=== PATIENT | female | born 1960 | race Caucasian/White ===

== ENCOUNTER → 2018-03-24 | Outpatient (CLI) | payer OTHER ==
[2015-05-21 16:14] VITALS: BMI 30.9
[~2018-03-24] MED LIST: ACE3 PO; ACET500T68 PO; AMI10 PO; ASC500 PO; ASCO-188 PO; CALC-734 PO; CALC-852 PO; CALC600T72 PO; CEF300 PO; CEFU250T11 PO; CEFU500T50 PO; CELE-1 PO; CEPH500T7 PO; CETI-169 PO; CHOL200022 PO; CIP500 PO; CLIN-1 PO; CLON1 PO; CLON1PAT19 TD; CLON1PAT20 TD; CYCL10TA29 PO; DAR100 PO; DEXL30CA5 PO; DEXL60CA6 PO; DIPH-740 PO; DIVA250T83 PO; DIVA500T97 PO; DOXY-179 PO; DOXY-181 PO; ENOX30DI4 SQ; ENOX40DI8 SQ; ENOX40DI9 SQ; EPIN0.3P15 IM; ERG400 PO; ERGO500037 PO; FERR-103 PO; FERR324T16 PO; FLU20 PO; FLUO20SO PO; FLUO20TA2 PO; FLUO40CA67 PO; FLUO40CA76 PO; FLUT16SP19 NS; FURO-47 PO; GAB300 PO; GABA-1 PO; GABA-549 PO; GENT5DRO31 OP; HYDR-4225 PO; HYDR12.561 PO; HYDR25CA83 PO; HYDR2TAB4 PO; HYDR2TAB74 PO; HYDR453.8 TP; HYOS0.1225 PO; IBU800 PO; KET10 PO; LAC10L PO; LAMO25TA4 PO; LISI-362 PO; LOR5/325 PO; LORA-802 PO; LORA10TA2 PO; MAXALT; METH4TAB66 PO; MISO200T62 PO; MONT10TA PO; MULT-1335 PO; MULT1TAB54 PO; NORE5TAB8 PO; OND4 PO; ONDA4TAB PO; ONDA4TAB9 PO; OXYC20TA86 PO; PAN40 PO; PANT40TA65 PO; PER PO; POTA-23 PO; PRE20 PO; PRED-1 PO; PRED20TA6 PO; PRO25 PO; RABE20TA33 PO; RANI-366 PO; RIZA10TA PO; SENN8.6T34 PO; SUCR1TAB51 PO; SULF-198 PO; TRA50 PO; TRAM-420 PO; TRI05T TP; TRIA10.8; WARF-1 PO; WARF2.5T11 PO; XANAX PO; ZOMIG; [UNRECOGNIZED DRUG - OTHER]
--- NOTE | 2018-03-30 09:39 | RADIOLOGY IMAGING REPORT ---
FACILITY: [facility] PATIENT NAME: DIMAS ADKINS : [id number] MR: [id number] V: [id number] EXAM DATE: [id number] ORDERING PHYSICIAN: JOSIAH DIAZ TECHNOLOGIST: Angela Arizmendi PROCEDURE:BILATERAL SCREENING MAMMOGRAPHY WITH TOMOGRAPHY & COMPUTER ASSISTED DIAGNOSIS COMPARISON:Prior mammograms 03/23/17, 01/20/16, 09/16/14, 02/20/14. INDICATIONS:SCREENING FINDINGS: Small amount of fibroglandular tissue is again seen throughout the breasts. Calcified oil cysts are again noted bilaterally. The parenchymal pattern has remained stable allowing for difference in mammographic technique & patient positioning. There is no evidence of malignant appearing mass, malignant appearing calcifications or other secondary sign of malignancy in either breast. DIAGNOSTIC CATEGORY 2--BENIGN FINDING. RECOMMENDATIONS: ROUTINE MAMMOGRAM AND CLINICAL EVALUATION. IMPRESSION: BIRADS 2: Benign finding No significant abnormality is seen. Dictated by: Erin Tompkins M.D. on 03/24/2018 at 12:50 Transcribed by: FELECIA on 03/24/2018 at 16:07 Approved by: Brayan Dennis M.D. on 03/30/2018 at 9:38 [facility]
== END ==
LOC: MAMO 03:07
PROVIDERS: ATTEND Internal Medicine
DX: Z12.31 Encounter for screening mammogram for malignant neoplasm of breast (principal)
CPT/HCPCS: 77063; 77067

== ENCOUNTER 2018-06-13 11:13 | Inpatient (IN) | payer OTHER ==
[2015-05-21 16:14] VITALS: Ht 162.6 cm; Wt 69.4 kg
[~2018-06-13] VITALS: Ht 162.6 cm; Wt 69.4 kg
[2018-06-13] VITALS (33 sets, daily range): BP systolic 126–162; BP diastolic 80–98
[~2018-06-13 11:13] MED LIST changes: +CEPH250C37 PO
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
[2018-06-13] MEDS ORDERED: NS(*) 0.9% 1000 ML BAG 1,000 ML IV ONE (11:54)
[2018-06-13] MEDS ORDERED: ONDANSETRON 4 MG/2 ML VIAL IVP ONE (11:55)
[2018-06-13] MEDS ORDERED: fentaNYL CITR 100 MCG/2 ML AMP IVP ONE ×3 (11:55→14:15)
--- NOTE | 2018-06-13 12:32 | RADIOLOGY IMAGING REPORT ---
FACILITY: [facility] [place] PATIENT NAME: Geeta Salinas : 1960 MR: [id number] V: [id number] EXAM DATE: ORDERING PHYSICIAN: NISHA NICHOLSON TECHNOLOGIST: Location: [facility] Patient: Geeta Salinas : 1960 Visit/Account:[id number] Date of Sevice: 06/13/2018 HIP RIGHT Indication: Right hip pain. Recent subluxation. Comparison: None available Findings: Frontal view of the pelvis and a frog-leg lateral view of the right hip are obtained. A right total h ip arthroplasties in place. Components project in appropriate alignment. No periprosthetic fracture o r lucency is seen. Left hip joint space is maintained. Pubic symphysis and sacroiliac joints are appr opriately aligned. Extensive changes of prior lumbosacral fusion are seen but is incompletely evaluat ed. IMPRESSION: 1. Right total hip arthroplasty in near-anatomic alignment. Report Dictated By: Zachariah Heller at 06/13/2018 12:27 PM Report E-Signed By: Zachariah Heller at 06/13/2018 12:28 PM WSN:[id number]
[2018-06-13 12:35] LABS: PLATELET COUNT, AUTOMATED 355 K/uL (150-450)
--- NOTE | 2018-06-13 14:16 | RADIOLOGY IMAGING REPORT ---
FACILITY: [facility] PATIENT NAME: Geeta Salinas : 1960 MR: [id number] V: [id number] EXAM DATE: ORDERING PHYSICIAN: NISHA NICHOLSON TECHNOLOGIST: Location: [facility] [place] Patient: Geeta Salinas : 1960 Visit/Account:[id number] Date of Sevice: 06/13/2018 ABDOMEN/PELVIS WITH CONTRAST HISTORY: ? hernia, r sided pain TECHNIQUE: Following administration of IV contrast contiguous axial images acquired through the abdom en/pelvis. Coronal and sagittal reformatting also performed. Dose Lowering Technique One of the following dose optimization techniques was utilized in the performance of this exam: Autom ated exposure control; adjustment of the mA and/or kV according to the patient's size; or use of an i terative reconstruction technique. Specific details can be referenced in the facility's radiology C T exam operational policy. CONTRAST: 75 mL Isovue-370 COMPARISON: None. FINDINGS: Visualized lung bases: Negative. Hepatobiliary: There are postsurgical changes from a cholecystectomy. There is a 9.2 x 7.2 x 13.3 cm lobular hypoattenuating collection along the medial inferior aspect right lobe the liver. CT Hounsfield units are not consistent with simple fluid and are concerning fo r hemorrhage. This appears to be subcapsular in origin with a small rim of hemorrhagic fluid surrou nding the anterior and right lateral aspect of the liver extending into the right paracolic gutter Spleen: Negative. Adrenals: Right adrenal gland is not well seen. Left adrenal gland is mildly thickened Pancreas: Negative. Kidneys ureters or bladder: The right kidney is displaced inferiorly by the subcapsular collection me dial aspect of the liver Genitalia: Pelvic contents not well seen due to streak artifacts from a right hip arthroplasty GI: There is a paraesophageal hernia. There is extensive diverticulosis of the left-sided colon although no CT evidence of acute diverticul itis although the pelvic portion of the bowel is not well seen due to the hip arthroplasty artifacts. Vessels/spaces/nodes: There are mild vascular calcifications Bones/soft tissues: There is a ventral hernia just to the left of midline in the upper abdomen conta ining a knuckle of nonobstructed transverse colon. This hernia opening measures 1.8 cm. There is an additional ventral hernia just to the right of midline containing fat and nonobstructed transverse colon this hernia opening measures 5.5 cm . There is an additional ventral hernia just to the right of midline also in the upper abdomen just abo ve the level the umbilicus. The hernia opening measures approximately 4.9 cm in diameter. There is a severe levoconvex scoliosis of the lumbar spine. There are extensive postoperative change s in the lower thoracic spine and throughout the lumbosacral spine from posterior decompression and f usion. Additional screws project into the iliac bones bilaterally. There is a right hip arthroplasty in place Additional findings: None pertinent. IMPRESSION: There is a 9.2 x 7.2 x 13.3 cm lobular hypoattenuating collection along the medial inferior aspect ri ght lobe the liver likely representing a large subcapsular hemorrhage. There is also small remote he morrhagic fluid surrounding the anterior and right lateral aspects of the liver extending into the ri ght paracolic gutter. Right kidney is displaced inferiorly by the subcapsular collection in the liver Paraesophageal hernia Extensive colonic diverticulosis Multiple ventral hernias as described Extensive postoperative changes of the thoracal lumbar spine and sacrum Results were called to NISHA NICHOLSON at 06/13/2018 2:05 PM. Report Dictated By: Erin Tompkins MD at 06/13/2018 1:45 PM Report E-Signed By: Erin Tompkins MD at 06/13/2018 2:14 PM WSN:[email or web address]
[2018-06-13 14:42] LABS: INR 0.94
[2018-06-13] MEDS ORDERED: FLUSH 10 ML SYR IVP PRN (15:25)
[2018-06-13] MEDS ORDERED: ACETAMINOPHEN(*)1000 MG/100 ML 100 ML IVPB PRN (15:25)
[2018-06-13] MEDS ORDERED: NALOXONE HCL 0.4 MG/ML VIAL IVP PRN (15:25)
[2018-06-13] MEDS: NS(*) 0.9% 1000 ML BAG 1,000 ML IV PRN (16:03)
[2018-06-13] MEDS: HYDROmorphone PCA 6 MG/30 ML IV PRN (16:03)
--- NOTE | 2018-06-13 19:35 | Gen Surgery History & Physical ---
History of Present Illness Chief Complaint Abdominal pain History of Present Illness 57-year-old female presents to the emergency department with abdominal pain. She 's been having issues with a right total hip arthroplasty with frequent recurring subluxations. She has been working with orthopedic surgery and physical therapy regarding this. She has been doing some exercises with physical therapy and 3 days ago apparently was doing some of those exercises and ended up falling and striking her right chest wall and abdominal flank on the arm of a chair. She didn't think too much of it. She did have some pain but she's been dealing with quite a bit of pain related to her hip. Yesterday she reached with her right arm across her body to pickup a remote control that was to her left and felt sudden pain in her right upper abdomen. She thought that it may be referred pain from her hip and so didn't think too much of it. She then did some research online, on [employer] and because she has a large midline ventral hernia from previous abdominal surgery she scared herself thinking that this was may be due to an incarcerated right inguinal hernia which brought her into the emergency room. A CT scan in the emergency room reveals a large subcapsular liver hematoma. I was then consult it to evaluate and treat her. History Problems: (1) Incisional hernia of anterior abdominal wall without obstruction or gangrene Status: Chronic (2) Depression, endogenous Status: Chronic (3) Hypertension Status: Chronic (4) Cerebral cavernous malformation Status: Chronic (5) S/P lumbar spinal fusion Status: Chronic (6) S/P total hip arthroplasty Status: Chronic (7) FH: stroke (8) FH: prostate cancer (9) FH: Alzheimers disease (10) FH: skin cancer (11) FH: alcohol abuse Home Meds Active Scripts Cyclobenzaprine Hcl (CYCLOBENZAPRINE HCL) 10 Mg Tablet, 1 TAB PO TID Y for muscle spasms, #90 TAB 1 Refill Prov:JOSIAH DIAZ MD 05/30/18 Tramadol Hcl (TRAMADOL HCL) 50 Mg Tablet, 1 TAB PO Q6H Y for pain, #40 TAB 0 Refills Prov:JOSIAH DIAZ MD 05/24/18 Epinephrine (EPIPEN 2-KAMAR) 0.3 Mg/0.3 Ml Pen.injctr, 0.3 MG IM ONCE for allergic reaction, #1 PACK 2 Refills Prov:JOSIAH DIAZ MD 02/09/18 Sucralfate (SUCRALFATE) 1 Gm Tablet, 1 GM PO TID, #90 TAB 5 Refills Prov:JOSIAH DIAZ MD 02/09/18 Rizatriptan Benzoate (MAXALT) 10 Mg Tablet, 1 TAB PO QDAY Y for MIGRAINE, #9 TAB 11 Refills Put 1 tab on tongue until dissolved, swallow as needed. Repeat in 2 hours as needed. Do not exceed 2 tabs per 24 hours. Prov:JOSIAH DIAZ MD 02/09/18 Dexlansoprazole (DEXILANT) 30 Mg Cap., 1 CAP PO QDAY, #90 CAP 3 Refills Prov:JOSIAH DIAZ MD 12/13/17 Gabapentin (GABAPENTIN) 300 Mg Capsule, 2 CAP PO QDAY, #180 CAPSULE 3 Refills Prov:JOSIAH DIAZ MD 08/31/17 Pantoprazole Sodium (PANTOPRAZOLE SODIUM) 40 Mg Tablet., 1 TAB PO QDAY, #90 TAB.SR 3 Refills Prov:JOSIAH DIAZ MD 08/31/17 Diphenhydramine Hcl (BENADRYL) 25 Mg Capsule, 25 MG PO QID for 5 Days, #30 CAPSULE Prov:SHEILA GOMEZ 08/30/17 Hyoscyamine Sulfate (HYOSCYAMINE SULFATE) 0.125 Mg Tablet, 1 TAB PO TID Y for abd cramps, #360 TAB 3 Refills Prov:JOSIAH DIAZ MD 08/29/17 Furosemide (FUROSEMIDE) 40 Mg Tablet, 1 TAB PO QDAY, #90 TAB 3 Refills Prov:JOSIAH DIAZ MD 07/06/17 Reported Medications Hydrocortisone 2.5% Oint (HYDROCORTISONE 2.5% OINT) 453.6 Gm Oint...g., 1 CODY TP BID Y for hives, TUBE 11/26/16 Clonidine (CLONIDINE 0.2 MG/DAY) 1 Each Patch.tdwk, 1 PATCH.WK TD Q7DAY, PATCH.WK 01/08/15 Norethindrone Acetate (AYGESTIN) 5 Mg Tablet, 2 TAB PO QDAY 01/08/15 Discontinued Reported Medications Loratadine (CLARITIN) 10 Mg Tablet, 1 TAB PO QDAY Y for allergy symptoms, TAB 06/09/16 Discontinued Scripts Cephalexin (KEFLEX) 250 Mg Capsule, 1 CAP PO QID for 10 Days, #40 CAPSULE 0 Refills Prov:MICHAEL CARMONA DNP, CORE STACKER-BC 05/01/18 Allergies: Coded Allergies: cefuroxime (Verified Allergy, Severe, anaphylaxis, 06/13/18) lisinopril (Verified Allergy, Severe, ANAPHYLAXIS, 06/13/18) moxifloxacin HCl (Verified Allergy, Severe, ANAPHYLAXIS, 06/13/18) amoxicillin (Verified Allergy, Intermediate, RASH/WELTS, 06/13/18) clarithromycin (Verified Allergy, Intermediate, RASH/ WELTS, 06/13/18) erythromycin base (Verified Allergy, Intermediate, RASH/WELTS, 06/13/18) oxycodone (Verified Allergy, Intermediate, severe itching, 06/13/18) Lincosamides (Verified Allergy, Mild, RASH, 06/13/18) clavulanic acid (Verified Allergy, Mild, NAUSEA/VOMITING, 06/13/18) Quinolones (Verified Allergy, Unknown, 06/13/18) naltrexone (Verified Allergy, Unknown, 06/13/18) nitrofurantoin (Verified Allergy, Unknown, 06/13/18) red dye (Verified Allergy, Unknown, 06/13/18) Uncoded Allergies: SILK STITCHES (Allergy, Intermediate, 06/28/11) Patient History: FH: Alzheimers disease FATHER, FH: alcohol abuse SISTER, Age:64 FH: prostate cancer BROTHER, Age:56, Onset:49 FH: skin cancer SISTER, Age:59 FH: stroke MOTHER, , Age:87 Review of Systems All Systems Reviewed/Normal: Yes, Except as Noted Gastrointestinal: Abdominal Pain Exam General Appearance: Alert, Awake, No Acute Distress, Afebrile Neuro: No Gross deficits Eyes: PERRLA ENT: Oropharynx Clear Cardiovascular: Regular Rate and Rhythm Respiratory: Clear to Auscultation Chest: Other (tenderness to right lateral chest wall) GI: Abd Soft and Non-Tender (right upper quadrant tenderness to palpation. She does have 2 adjacent midline ventral hernias just to the right of midline. These are soft and easily reducible and nontender. She has well-healed vertical midline scar.) Extremities: Warm, Perfused Integumentary: Skin Intact without Lesion / Mass Psych: Alert & Oriented X3, Appropriate Mood & Affect Medical Decision Making Data Points Result Diagram: 06/13/18 1220 06/13/18 1220 Assessment and Plan Problems: (1) Subcapsular hemorrhage of liver Status: Acute Assessment & Plan: 06/13/18: I have evaluated the patient as well as her labs and imaging. I have elected to admit her to the intensive care unit for close monitoring due to this subcapsular hematoma on her liver. This is likely due to her recent fall on her right side 3 days ago. It all appears contained under the capsule. There is no free blood in her abdomen. Her vital signs are stable and her hemoglobin is normal. We will admit her to the intensive care unit for close observation and we'll follow her hemoglobin and vital signs. We'll keep her on bed rest tonight and nothing by mouth. If she is able to make it through the night without any signs of ongoing bleeding such as vital sign abnormalities , hypotension, tachycardia, or significant drops in her hemoglobin, or change in her abdominal exam with increased distention and pain, will allow her to start mobilizing tomorrow and will advance her diet. She does have the ventral hernias but they appear to be uncomplicated and there certainly not incarcerated or symptomatic at this point. I have explained these findings with her and I have explained this plan. She seems reassured and seems agreeable with this plan. (2) Incisional hernia of anterior abdominal wall without obstruction or gangrene Status: Chronic Assessment & Plan: No issues with her hernias at the moment. Condition Guarded Time Spent: < 30 min Venous Thromboembolism VTE Risk Physician Assess for VTE Risk: Yes Patient's VTE Risk: Low VTE Diagnostic Test 2 Days Prior to Admit: No Antithrombotics Is Pt On Any Antithrombotics?: No JAYNE REN MD Jun 13, 2018 19:35
[2018-06-13] MEDS: ONDANSETRON 4 MG/2 ML VIAL IVP PRN (20:29)
[2018-06-14] VITALS (31 sets, daily range): BP systolic 124–182; BP diastolic 82–117
[2018-06-14] MEDS: ONDANSETRON 4 MG/2 ML VIAL IVP PRN ×3 (00:38→10:09)
[2018-06-14] MEDS ORDERED: MORPHINE 2 MG/ML SYR IVP ONE (01:20)
[2018-06-14] MEDS: HYDROmorphone PCA 6 MG/30 ML IV PRN (03:28)
[2018-06-14 05:44] LABS: PLATELET COUNT, AUTOMATED 258 K/uL (150-450)
[2018-06-14] MEDS: NS(*) 0.9% 1000 ML BAG 1,000 ML IV PRN (07:17)
--- NOTE | 2018-06-14 07:18 | General Surgery Progress Note ---
Subjective Progress Notes Subjective Started having episodic, spasmodic "muscle spasms" overnight. Severe pain. Also with right shoulder pain overnight. Same symptoms she had in ER, treated with fentanyl. Physical Exam Vital Signs Date Time Temp Pulse Resp B/P (MAP) Pulse Ox O2 Delivery O2 Flow Rate FiO2 06/14/18 06:06 25 06/14/18 06:00 90 152/97 (115) 92 Nasal Cannula 1.0 06/14/18 00:15 98.0 General Appearance: Alert, Awake, Afebrile, Other (Appears uncomfortable) GI: Other (Soft, TTP in RUQ) Extremities: Warm, Perfused, Other (Right anterior shoulder TTP, no deformity.) Result Diagram: 06/14/1836 06/14/1836 Assessment and Plan Problems: (1) Subcapsular hemorrhage of liver Status: Acute Assessment & Plan: 06/13/18: I have evaluated the patient as well as her labs and imaging. I have elected to admit her to the intensive care unit for close monitoring due to this subcapsular hematoma on her liver. This is likely due to her recent fall on her right side 3 days ago. It all appears contained under the capsule. There is no free blood in her abdomen. Her vital signs are stable and her hemoglobin is normal. We will admit her to the intensive care unit for close observation and we'll follow her hemoglobin and vital signs. We'll keep her on bed rest tonight and nothing by mouth. If she is able to make it through the night without any signs of ongoing bleeding such as vital sign abnormalities , hypotension, tachycardia, or significant drops in her hemoglobin, or change in her abdominal exam with increased distention and pain, will allow her to start mobilizing tomorrow and will advance her diet. She does have the ventral hernias but they appear to be uncomplicated and there certainly not incarcerated or symptomatic at this point. I have explained these findings with her and I have explained this plan. She seems reassured and seems agreeable with this plan. 06/14/18: Having severe RUQ abdominal and right shoulder pain. Shoulder pain may be related to her liver subcapsular hematoma via referred pain. Will get an x-ray of her shoulder to r/o a shoulder injury. Will repeat and abdominal CT to determine if liver capsule has ruptured of if hematoma is still contained. Vital signs have remained stable. H/H down only a little, consistent more with hemodilution, not active bleeding. Will try fentanyl pushes to address her pain. If CT reveals free blood in her abdomen then will need to proceed with ex-lap. If hematoma still contained then will work on pain control. Continue ICU care today. (2) Incisional hernia of anterior abdominal wall without obstruction or gangrene Status: Chronic Assessment & Plan: No issues with her hernias at the moment. (3) Hypertension Status: Chronic Assessment & Plan: Will restart antihypertensive meds when back on diet. May need to consider hydralazine but afraid of making her hypotensive if she suffers liver capsule rupture with bleeding. Condition Stable. Time Spent: < 30 min Exam Sepsis Risk: No Definite Risk Problem Qualifiers (1) Hypertension: Hypertension type: essential hypertension Qualified Codes: I10 - Essential ( primary) hypertension JAYNE REN MD Jun 14, 2018 07:18
[2018-06-14] MEDS: fentaNYL CITR 100 MCG/2 ML AMP IVP PRN ×3 (07:21→10:31)
--- NOTE | 2018-06-14 08:27 | RADIOLOGY IMAGING REPORT ---
FACILITY: [facility] PATIENT NAME: Geeta Salinas : 1960 MR: [id number] V: [id number] EXAM DATE: ORDERING PHYSICIAN: JAYNE REN TECHNOLOGIST: Location: [facility] Patient: Geeta Salinas : 1960 Visit/Account:[id number] Date of Sevice: 06/14/2018 Exam type: SHOULDER MIN 2 VIEWS RIGHT History: s/p fall, right shoulder pain Comparison: None. Findings: Two views of the right shoulder demonstrate no evidence of acute fracture or dislocation. There are mild degenerative changes at the right AC joint. Mild linear stranding in the right lung base may re present scarring or atelectasis.. Right hilar prominence likely the right pulmonary artery although correlation with PA chest may be helpful IMPRESSION: 1. No evidence of acute fractures condition involving the right shoulder Mild degenerative changes the right AC joint Right hilar prominence likely the right pulmonary artery although correlation with PA chest may be he lpful Report Dictated By: Erin Tompkins MD at 06/14/2018 8:18 AM Report E-Signed By: Erin Tompkins MD at 06/14/2018 8:23 AM WSN:[email or web address]
--- NOTE | 2018-06-14 08:48 | RADIOLOGY IMAGING REPORT ---
FACILITY: [facility] PATIENT NAME: Geeta Salinas : 1960 MR: [id number] V: [id number] EXAM DATE: ORDERING PHYSICIAN: JAYNE REN TECHNOLOGIST: Location: [facility] Patient: Geeta Salinas : 1960 Visit/Account:[id number] Date of Sevice: 06/14/2018 ABDOMEN/PELVIS W/O CONTRAST HISTORY: Subcapsular liver hematoma, worsening abdominal pain TECHNIQUE: Axial images acquired through the abdomen/pelvis. Coronal and sagittal reformatting also performed. No IV contrast administered. Dose Lowering Technique One of the following dose optimization techniques was utilized in the performance of this exam: Autom ated exposure control; adjustment of the mA and/or kV according to the patient's size; or use of an i terative reconstruction technique. Specific details can be referenced in the facility's radiology C T exam operational policy. COMPARISON: CT abdomen pelvis June 13, 2018 FINDINGS: Visualized lung bases: Since yesterday's study there has been development of a small posterior layer ing right pleural effusion and a small amount of compressive atelectasis in the right lower lobe Coronary artery calcifications are present. Hepatobiliary: The previously noted subcapsular liver hematoma is difficult to visualize due to lack of contrast although appears to be increased in size of the intraparenchymal component. There are a dditional areas of decreased attenuation within the liver likely representing areas of additional hem orrhage most prominent along the dome some of which are likely intraparenchymal complex fluid collect ion along the dome measures approximately 4.5 x 8 x 6 cm. The fluid collection adjacent to the dome and right lobe laterally has increased in size previously measuring approximately 6 mm in thickness n ow measuring approximately 2.7 cm in thickness. The hemoperitoneum extends more inferiorly into the right paracolic gutter and there is a trace amount within the dependent portion of the pelvis Postsur gical changes from a cholecystectomy again noted. Spleen: Negative. Adrenals: Negative. Pancreas: Negative. Kidneys ureters and bladder: Right kidney is displaced inferiorly by the liver hemorrhage. There is now a 2.2 x 2.8 x 1.6 cm collection just inferior to the right kidney which does not measure simple f luid and may represent an additional area of hemorrhage Genitalia: Pelvic contents not well seen due to artifacts from the right hip arthroplasty GI: There is extensive diverticulosis left-sided colon although no CT evidence of acute diverticulit is. There is a paraesophageal hernia Vessels/spaces/nodes: Mild vascular calcifications Bones/soft tissues: Calcifications in both breasts are present which were seen on the recent mammogr am. There is a nodular density in proximal and clock position of the left breast. This has apparent ly been previously biopsied sonographically . There are multiple ventral hernias as described on yesterday's report. Some these hernias containing bowel although there is no evidence of incarceration. Severe levoconvex scoliosis lumbar spine and extensive postoperative changes also again noted. Right hip arthroplasty Additional findings: None pertinent. IMPRESSION: The previously noted subcapsular hematoma along the medial aspect right lobe of the liver is difficul t to delineate due to lack of intravenous contrast although appears to have increased in size. A por tion appears to be intraparenchymal. Also noted are complex collections now present along the dome o f the liver some of which appear to be intraparenchymal. The hyperdense fluid surrounding the dome and right lateral aspect of the liver extending the paracol ic gutter has increased as described above and there is now a trace amount of dense fluid within the pelvis. There is now 2.2 x 2.8 x 1.6 cm collection just inferior to the right kidney which does not measure s imple fluid and may represent an additional area of h morrhage. Additional chronic findings as described above Results were called to JAYNE REN at 06/14/2018 8:44 AM. Report Dictated By: Erin Tompkins MD at 06/14/2018 8:23 AMReport E-Signed By: Erin Tompkins MD at 06/14/2018 8:44 AM WSN:[email or web address]
[2018-06-14] MEDS ORDERED: PANTOPRAZOLE SOD 40 MG IV VIAL IVP SCH (09:00)
--- NOTE | 2018-06-14 09:33 | Hospitalist Transfer Report ---
Hospitalist Transfer Summary Weight (Pounds): 153 Other Diagnosis: Subcapsular liver hematoma after a fall that is getting larger overnight with signs of continued hemorrhage from liver parenchyma. Result Diagram: 06/14/18 0536 06/14/18 0536 Hospital Course/Plan Admitted to ICU for close observations. Pt developed worsening RUQ and right shoulder pain overnight and repeat CT this morning reveals the subcapsular hematoma is getting larger with evidence of continued bleeding from liver parenchyma. Vitals continue to be stable. Will transfer patient to [facility] Trauma team with hope for IR intervention to stop continued bleeding. Condition: Critical Time Spent: < 30 min Disposition: Higher Level of Care Inpatient Medications For a complete list of inpatient medications please see the medication reconciliation form. Medical Records to be sent: History and Physical, Transfer JAYNE REN MD Jun 14, 2018 09:32
== END 2018-06-14 10:48 | DRG 442 ==
LOC: ER 11:13 → ICU 14:57
PROVIDERS: ADMIT Surgery; ATTEND Surgery
DX: S36.112A Contusion of liver, initial encounter (principal); Q04.8 Other specified congenital malformations of brain; K21.9 Gastro-esophageal reflux disease without esophagitis; I10 Essential (primary) hypertension; F32.9 Major depressive disorder, single episode, unspecified; Z88.1 Allergy status to other antibiotic agents; Z88.8 Allergy status to other drugs, medicaments and biological substances; Z88.5 Allergy status to narcotic agent; Z90.49 Acquired absence of other specified parts of digestive tract; Z87.891 Personal history of nicotine dependence; Z90.710 Acquired absence of both cervix and uterus; Z98.1 Arthrodesis status; W01.190A Fall on same level from slipping, tripping and stumbling with subsequent striking against furniture, initial encounter; Y92.009 Unspecified place in unspecified non-institutional (private) residence as the place of occurrence of the external cause; Y99.8 Other external cause status
CPT/HCPCS: 36415; 74176; 74177; 81001; 82040; 82247; 82248; 82310; 82374; 82435; 82565; 82947; 83690; 84075; 84132; 84155; 84295; 84450; 84460; 84520; 85014; 85018; 85025; 85610; 85730; 86850; 86900; 86901; 86920; C9113; J0131; J1170; J2270; J2405; J3010; J7030

== ENCOUNTER → 2018-06-14 | Outpatient (CLI) | payer OTHER ==
[2015-05-21 16:14] VITALS: BMI 30.9
== END ==
LOC: AMB 10:22
PROVIDERS: ATTEND Nurse Practitioner
DX: R10.11 Right upper quadrant pain (principal); S36.113A Laceration of liver, unspecified degree, initial encounter; X58.XXXA Exposure to other specified factors, initial encounter; M25.511 Pain in right shoulder
CPT/HCPCS: A0425; A0427

== ENCOUNTER → 2018-06-27 | Outpatient (CLI) | payer OTHER ==
[2015-05-21 16:14] VITALS: BMI 30.9
[~2018-06-27] MED LIST changes: +HYDR-385 PO
[2018-06-27 11:11] LABS: PLATELET COUNT, AUTOMATED 664 K/uL (150-450)
== END ==
LOC: LAB 10:57
PROVIDERS: ATTEND Surgery
DX: I10 Essential (primary) hypertension (principal); S36.112A Contusion of liver, initial encounter
CPT/HCPCS: 36415; 82040; 82247; 82248; 82310; 82374; 82435; 82565; 82947; 83735; 84075; 84132; 84155; 84295; 84450; 84460; 84520; 85025

== ENCOUNTER → 2018-07-14 | Outpatient (CLI) | payer OTHER ==
[2015-05-21 16:14] VITALS: BMI 30.9
[~2018-07-14] MED LIST changes: +CHOL200018 PO; -CHOL200022 PO; +ENOX60DI8 SQ; +WARF5TAB23 PO
[2018-07-14 13:46] LABS: PLATELET COUNT, AUTOMATED 466 K/uL (150-450)
== END ==
LOC: LAB 13:31
PROVIDERS: ATTEND Surgery
DX: J81.1 Chronic pulmonary edema (principal)
CPT/HCPCS: 36415; 85025

== ENCOUNTER → 2018-07-14 | Outpatient (CLI) | payer OTHER ==
[2015-05-21 16:14] VITALS: BMI 30.9
[~2018-07-14] MED LIST changes: +IOPAMIDOL 76% 75 ML INFUS BTL 75 ML ONE
--- NOTE | 2018-07-14 13:23 | RADIOLOGY IMAGING REPORT ---
FACILITY: [facility] PATIENT NAME: Geeta Salinas : 1960 MR: [id number] V: [id number] EXAM DATE: ORDERING PHYSICIAN: JAYNE REN TECHNOLOGIST: Location: [facility] [place] Patient: Geeta Salinas : 1960 Visit/Account:[id number] Date of Sevice: 07/14/2018 CT ABDOMEN WITH IV CONTRAST CLINICAL INFORMATION: Subcapsular hemorrhage of liver TECHNIQUE: Axial CT images were obtained through the abdomen during injection of nonionic iodinated intravenous contrast. Reformatted coronal and sagittal images were also obtained. Dose Lowering Tech LastRoom One of the following dose optimization techniques was utilized in the performance of this exam: Autom ated exposure control; adjustment of the mA and/or kV according to the patient's size; or use of an i terative reconstruction technique. Specific details can be referenced in the facility's radiology C T exam operational policy. CONTRAST: 75 mL of Isovue 370 IV contrast. COMPARISON: CT of the chest October 24, 2012 CT abdomen pelvis June 13, [address] of abdomen pe lvis June 14, 2018. FINDINGS: Lower lung juarez: Extensive pulmonary emboli are now identified in the segmental and subsegmental ar terial branches to the right lower lobe and to lesser extent left lower lobe. This is more dense whe n compared to prior CT of the chest from October 24, 2012. There are coronary artery calcifications also noted Liver: Again noted is the large subcapsular hematoma along the posterior aspect of the liver which is increased in size measuring 9.65 cm in AP dimension as opposed to 9.3, 11.4 cm in width as opposed t o 7.6 and 17.4 cm in length as opposed to 7.3 there is less fluid surrounding the anterior right late ral aspect of the liver and slightly less extending into the right paracolic gutter. Biliary: Postsurgical changes from cholecystectomy Pancreas: Normal appearance. Spleen: Normal appearance. Adrenal glands: Unremarkable. Kidneys / retroperitoneum: There is persistent inferior displacement of the right kidney due to the s ubcapsular liver hematoma Bowel / peritoneum / mesenteries: Paraesophageal hernia again noted. Diverticulosis left-sided colon present although no CT evidence of acute diverticulitis Lymph node assessment: No pathologic adenopathy identified. Vessels: Mild vascular calcifications atherosclerotic calcification seen throughout a nonaneurysmal a bdominal aorta and branches. Musculoskeletal / Body wall: Previously noted ventral hernia in the upper abdomen just to left of mid line appears to been related to laxity of the rectus sheath. There is additional ventral hernia in t he midline of the upper abdomen now containing fat although no longer containing transverse colon. A dditional ventral hernia to the right of midline in the upper abdomen contains fat although no longer contains transverse colon. Extensive postoperative changes in the thoracal lumbar spine again seen IMPRESSION: 1. Large subcapsular hepatic hematoma appear to be increased in size when compared to the prior stud y although there is less fluid surrounding the right lateral and anterior aspects of the liver one co mpared to the prior study and less fluid in the right paracolic gutter Additional chronic findings as described Findings were discussed with Dr. Alfred by telephone Report Dictated By: Erin Tompkins MD at 07/14/2018 12:43 PM Report E-Signed By: Erin Tompkins MD at 07/14/2018 1:20 PM ZECHARIAHN:CANDIDO
== END ==
LOC: CT 03:26
PROVIDERS: ATTEND Surgery
DX: K76.89 Other specified diseases of liver (principal); Z90.49 Acquired absence of other specified parts of digestive tract; I25.10 Atherosclerotic heart disease of native coronary artery without angina pectoris; Z98.890 Other specified postprocedural states; K43.9 Ventral hernia without obstruction or gangrene
CPT/HCPCS: 74160; Q9967

== ENCOUNTER 2018-08-14 10:44 | Outpatient (RCR) | payer OTHER ==
[2015-05-21 16:14] VITALS: BMI 30.9
[~2018-08-14 10:44] MED LIST changes: -IOPAMIDOL 76% 75 ML INFUS BTL 75 ML ONE
[2018-08-16] MEDS ORDERED: IOPAMIDOL 76% 75 ML INFUS BTL 75 ML ONE (08:25)
--- NOTE | 2018-08-16 09:54 | RADIOLOGY IMAGING REPORT ---
FACILITY: [facility] PATIENT NAME: Geeta Salinas : 1960 MR: [id number] V: [id number] EXAM DATE: ORDERING PHYSICIAN: JAYNE REN TECHNOLOGIST: Location: [facility] [place] Patient: Geeta Salinas : 1960 Visit/Account:[id number] Date of Sevice: 08/16/2018 CT ABDOMEN WITH IV CONTRAST CLINICAL INFORMATION: Subcapsular hemorrhage of liver TECHNIQUE: Axial CT images were obtained through the abdomen during injection of nonionic iodinated intravenous contrast. Reformatted coronal and sagittal images were also obtained. Dose Lowering Tech InCytuque One of the following dose optimization techniques was utilized in the performance of this exam: Autom ated exposure control; adjustment of the mA and/or kV according to the patient's size; or use of an i terative reconstruction technique. Specific details can be referenced in the facility's radiology C T exam operational policy. CONTRAST: 75 mL of Isovue 370 IV contrast. COMPARISON: July 14, 2018. FINDINGS: Lower lung juarez: Although the study was not performed as a CTA of the pulmonary arteries there is i mprovement of the pulmonary emboli identified in the segmental and subsegmental arterial branches to the lower lobes, right greater than left. A very small amount of thrombus remains. Coronary artery calcifications again noted Liver: Again noted is a large subcapsular hematoma along the posterior aspect of the liver this colle ction now measures 7.9 cm in AP dimension as opposed to 9.6 cm previously, 8.9 cm in width as opposed to 11.4 cm previously and 15.2 cm in length as opposed to 17.4 cm.. There is less fluid extending i nto the right paracolic gutter Biliary: There are postsurgical changes from a cholecystectomy with a very small amount of pneumobili a now noted Pancreas: Normal appearance. Spleen: Normal appearance. Adrenal glands: Unremarkable. Kidneys / retroperitoneum: There is persistent inferior to the right kidney due to the large subcapsu lar hepatic hematoma. The inferior aspect right kidney was not entirely included on the scan Bowel / peritoneum / mesenteries: Paraesophageal hernia again noted again is diverticulosis left-side d colon Lymph node assessment: No pathologic adenopathy identified. Vessels: Mild vascular calcifications in the abdominal aorta and branch vessels atherosclerotic calci fication seen throughout a nonaneurysmal abdominal aorta and branches. Musculoskeletal / Body wall: Laxity of the rectus sheath in the upper abdomen with outward bowing of peritoneal fat again noted. Ventral hernia in the midline of the upper abdomen contains fat and appears relatively unchanged Extensive postoperative changes of the thoracolumbar spine IMPRESSION: 1. The large subcapsular hematoma projecting along the posterior and inferior right lobe the liver i s partially decreased in size as described above. There is also less fluid in the right paracolic gu tter There has been improvement of the pulmonary emboli in the lower lobes though tiny amount of thrombus appears to remain Additional chronic findings as described Report Dictated By: Erin Tompkins MD at 08/16/2018 9:40 AM Report E-Signed By: Erin Tompkins MD at 08/16/2018 9:50 AM ZECHARIAHN:AMICIVItalo
[2018-08-18] MEDS ORDERED: FLU60VIA41 IM (16:48)
[2018-08-23] MEDS ORDERED: TRAM-420 PO (12:20)
[2018-08-23] MEDS ORDERED: HYDR-385 PO (12:20)
== END 2018-08-16 18:00 | disposition home or self-care (01) ==
LOC: CT 10:44 → EDSTATUS 08-16 10:44 → CT 08-16 18:00
PROVIDERS: ATTEND Surgery
DX: Z01.818 Encounter for other preprocedural examination (principal); K76.89 Other specified diseases of liver
CPT/HCPCS: 36415; 74160; 82565; Q9967

== ENCOUNTER → 2018-08-31 | Outpatient (CLI) | payer OTHER ==
[2015-05-21 16:14] VITALS: BMI 30.9
[~2018-08-31] MED LIST changes: +FLU60VIA41 IM
[2018-08-31 11:11] LABS: INR 1.13
== END ==
LOC: LAB 10:47
PROVIDERS: ATTEND Pharmacist Pharmacotherapy
DX: Z79.01 Long term (current) use of anticoagulants (principal); I26.99 Other pulmonary embolism without acute cor pulmonale
CPT/HCPCS: 36415; 85610

== ENCOUNTER 2018-09-08 10:03 | Emergency (ER) | payer OTHER ==
[2015-05-21 16:14] VITALS: Wt 64.9 kg
[~2018-09-08 10:03] MED LIST changes: -METH-543 PO; +SENN8.6T34 PO; -SENN8.6T35 PO
[2018-09-08] MEDS ORDERED: fentaNYL CITR 100 MCG/2 ML AMP IVP ONE ×2 (10:15→10:45)
[2018-09-08] MEDS ORDERED: ONDANSETRON 4 MG/2 ML VIAL IVP ONE (10:15)
[2018-09-08 10:29] LABS: PLATELET COUNT, AUTOMATED 435 K/uL (150-450)
[2018-09-08] MEDS ORDERED: fentaNYL CITR 100 MCG/2 ML AMP ONE (10:46)
--- NOTE | 2018-09-08 10:47 | ER Report ---
History and Physical Time Seen By MD: 10:09 Hx. of Stated Complaint: subluxed R hip when exiting vehicle. HPI/ROS CHIEF COMPLAINT: Hip pain HISTORY OF PRESENT ILLNESS: Patient is a 57-year-old female who is brought in by ambulance secondary to suspected dislocation or subluxation of her right hip. He has a right total hip replacement and has had problems with subluxations in the past. Patient was actually just arriving to [facility] for physical therapy and was unable to get out of the car secondary to pain. Patient was brought in by ambulance. A T-pod was placed on the patient which seemed to improve her pain. And has multiple medical problems including recent admission for abdominal pain and liver subcapsular hematoma. Patient is on Coumadin for prior DVTs. Patient currently denies any abdominal pain. She denies chest pain or shortness of breath only complaining of pain to the right hip area. REVIEW OF SYSTEMS: Respiratory: No cough, no dyspnea. Cardiovascular: No chest pain, no palpitations. Gastrointestinal: No vomiting, no abdominal pain. Musculoskeletal: No back pain. Right hip pain Allergies: Coded Allergies: cefuroxime (Verified Allergy, Severe, anaphylaxis, 06/13/18) lisinopril (Verified Allergy, Severe, ANAPHYLAXIS, 06/13/18) moxifloxacin HCl (Verified Allergy, Severe, ANAPHYLAXIS, 06/13/18) amoxicillin (Verified Allergy, Intermediate, RASH/WELTS, 06/13/18) clarithromycin (Verified Allergy, Intermediate, RASH/ WELTS, 06/13/18) erythromycin base (Verified Allergy, Intermediate, RASH/WELTS, 06/13/18) oxycodone (Verified Allergy, Intermediate, severe itching, 06/13/18) Lincosamides (Verified Allergy, Mild, RASH, 06/13/18) clavulanic acid (Verified Allergy, Mild, NAUSEA/VOMITING, 06/13/18) Quinolones (Verified Allergy, Unknown, 06/13/18) naltrexone (Verified Allergy, Unknown, 06/13/18) nitrofurantoin (Verified Allergy, Unknown, 06/13/18) red dye (Verified Allergy, Unknown, 06/13/18) Uncoded Allergies: SILK STITCHES (Allergy, Intermediate, 06/28/11) Home Meds Active Scripts Hydrocodone Bit/Acetaminophen (HYDROCODON-ACETAMINOPHEN 5-325) 1 Each Tablet, 1 EACH PO Q4-6H PRN for PAIN, #15 TAB 0 Refills TAKE ONE TABLET BY MOUTH EVERY 4-6 HOURS NEEDED FOR PAIN Prov:ROGER KEMP MD 09/08/18 Methocarbamol (ROBAXIN-750) 750 Mg Tablet, 1500 MG PO TID for Muscle Relaxant, #30 TAB 0 Refills Prov:ROGER KEMP MD 09/08/18 Warfarin Sodium (WARFARIN SODIUM) 2.5 Mg Tablet, 0.5-1 TAB PO QDAY for 60 Days, #50 TAB 4 Refills Prov:ABE DIETRICH PHARMD 09/04/18 Hydrocodone Bit/Acetaminophen (HYDROCODON-ACETAMINOPHEN 5-325) 1 Each Tablet, 1- 2 TAB PO Q4H PRN for PAIN, #10 TAB 0 Refills Prov:JAYNE REN MD 08/23/18 Tramadol Hcl (TRAMADOL HCL) 50 Mg Tablet, 1 TAB PO Q6H PRN for pain, #40 TAB 0 Refills Prov:JAYNE REN MD 08/23/18 Enoxaparin Sodium (LOVENOX) 60 Mg/0.6 Ml Disp.syrin, 1 DIS.SYR SQ BID, #14 DIS.SYR 0 Refills Prov:JAYNE REN MD 07/14/18 Cyclobenzaprine Hcl (CYCLOBENZAPRINE HCL) 10 Mg Tablet, 1 TAB PO TID PRN for muscle spasms, #90 TAB 1 Refill Prov:JOSIAH DIAZ MD 05/30/18 Epinephrine (EPIPEN 2-KAMAR) 0.3 Mg/0.3 Ml Pen.injctr, 0.3 MG IM ONCE for allergic reaction, #1 PACK 2 Refills Prov:JOSIAH DIAZ MD 02/09/18 Sucralfate (SUCRALFATE) 1 Gm Tablet, 1 GM PO TID, #90 TAB 5 Refills Prov:JOSIAH DIAZ MD 02/09/18 Rizatriptan Benzoate (MAXALT) 10 Mg Tablet, 1 TAB PO QDAY PRN for MIGRAINE, #9 TAB 11 Refills Put 1 tab on tongue until dissolved, swallow as needed. Repeat in 2 hours as needed. Do not exceed 2 tabs per 24 hours. Prov:JOSIAH DIAZ MD 4/5/18 Dexlansoprazole (DEXILANT) 30 Mg Cap., 1 CAP PO QDAY, #90 CAP 3 Refills Prov:JOSIAH DIAZ MD 12/13/17 Gabapentin (GABAPENTIN) 300 Mg Capsule, 2 CAP PO QDAY, #180 CAPSULE 3 Refills Prov:JOSIAH DIAZ MD 08/31/17 Pantoprazole Sodium (PANTOPRAZOLE SODIUM) 40 Mg Tablet.dr, 1 TAB PO QDAY, #90 T AB.SR 3 Refills Prov:JOSIAH DIAZ MD 08/31/17 Diphenhydramine Hcl (BENADRYL) 25 Mg Capsule, 25 MG PO QID for 5 Days, #30 CAPSULE Prov:SHEILA GOMEZ 08/30/17 Hyoscyamine Sulfate (HYOSCYAMINE SULFATE) 0.125 Mg Tablet, 1 TAB PO TID PRN for abd cramps, #360 TAB 3 Refills Prov:JOSIAH DIAZ MD 08/29/17 Furosemide (FUROSEMIDE) 40 Mg Tablet, 1 TAB PO QDAY, #90 TAB 3 Refills Prov:JOSIAH DIAZ MD 07/06/17 Reported Medications Hydrocortisone 2.5% Oint (HYDROCORTISONE 2.5% OINT) 453.6 Gm Oint...g., 1 CODY TP BID PRN for hives, TUBE 11/26/16 Clonidine (CLONIDINE 0.2 MG/DAY) 1 Each Patch.tdwk, 1 PATCH.WK TD Q7DAY, PATCH.WK 01/08/15 Norethindrone Acetate (AYGESTIN) 5 Mg Tablet, 2 TAB PO QDAY 01/08/15 Past Medical/Surgical History Past medical history for DVT of lower extremities, hyperlipidemia, hypertension, COPD, diverticulosis, gastroesophageal reflux disease, history of right arm fracture left leg fracture, history of right subcapsular hematoma of the liver secondary to fall. History of appendectomy, cholecystectomy, gastric bypass, hy sterectomy history of right hip replacement Hx Smoking: No Smoking Status: Former Smoker Exposure to Second Hand Smoke?: No Hx Substance Use Disorder: No Hx Alcohol Use: Yes Constitutional Vital Sign - Last 24 Hours 09/08/18 09/08/18 09/08/18 09/08/18 10:03 10:08 10:14 10:18 Temp 97.3 Pulse ??? 85 84 Resp 16 12 B/P (MAP) 147/91 (109) 147/91 Pulse Ox 95 96 O2 Delivery Room Air Room Air 09/08/18 09/08/18 09/08/18 09/08/18 10:30 10:33 10:48 11:03 Pulse 79 82 80 Resp 12 9 15 B/P (MAP) 151/93 (112) Pulse Ox 94 98 95 O2 Delivery Nasal Cannula Nasal Cannula Nasal Cannula O2 Flow Rate 2 2 2 09/08/18 09/08/18 09/08/18 11:12 11:18 11:23 Pulse 75 83 Resp 15 12 B/P (MAP) 139/88 (105) Pulse Ox 97 96 O2 Delivery Nasal Cannula Room Air O2 Flow Rate 2 Physical Exam General Appearance: The patient is alert, has no immediate need for airway protection and no current signs of toxicity. Eyes: Pupils equal and round no injection. Respiratory: Chest is non tender, lungs are clear to auscultation. Cardiac: regular rate and rhythm Gastrointestinal: Abdomen is soft and non tender, no masses, bowel sounds normal. Musculoskeletal: Neck: Neck is supple and non tender. Extremities she has severe pain when moving the right hip. There does not a ppear to be any shortening or malrotation of the leg. Patient has sensation into the feet. Skin: No rashes or lesions. Medical Decision Making Data Points Result Diagram: 09/08/18 1015 09/08/18 1015 Laboratory Hematology Test 09/08/18 10:15 09/08/18 10:17 Red Blood Count 6.15 M/uL (4.17-5.56) Mean Corpuscular Volume 70.6 fL (80.0-96.0) Mean Corpuscular Hemoglobin 23.0 pg (26.0-33.0) Mean Corpuscular Hemoglobin Concent 32.6 g/dL (32.0-36.0) Red Cell Distribution Width 21.3 % (11.5-14.5) Mean Platelet Volume 7.9 fL (7.2-11.1) Neutrophils (%) (Auto) 77.0 % (39.4-72.5) Lymphocytes (%) (Auto) 14.3 % (17.6-49.6) Monocytes (%) (Auto) 7.0 % (4.1-12.4) Eosinophils (%) (Auto) 0.6 % (0.4-6.7) Basophils (%) (Auto) 1.1 % (0.3-1.4) Nucleated RBC Relative Count (auto) 0.0 /100WBC Neutrophils # (Auto) 6.6 K/uL (2.0-7.4) Lymphocytes # (Auto) 1.2 K/uL (1.3-3.6) Monocytes # (Auto) 0.6 K/uL (0.3-1.0) Eosinophils # (Auto) 0.0 K/uL (0.0-0.5) Basophils # (Auto) 0.1 K/uL (0.0-0.1) Nucleated RBC Absolute Count (auto) 0.00 K/uL Peripheral Blood Smear No Y/N Sodium Level 137 mmol/L (137-145) Potassium Level 3.3 mmol/L (3.5-5.0) Chloride Level 99 mmol/L (98-107) Carbon Dioxide Level 28 mmol/L (22-31) Blood Urea Nitrogen 11 mg/dl (7-18) Creatinine 0.80 mg/dl (0.52-1.04) Glomerular Filtration Rate Calc > 60.0 Random Glucose 90 mg/dl (75-110) Calcium Level 8.9 mg/dl (8.4-10.2) Prothrombin Time 30.1 seconds (12.0-14.4) Prothromb Time International Ratio 2.80 Activated Partial Thromboplast Time 55 seconds (23-35) Chemistry Test 09/08/18 10:15 09/08/18 10:17 White Blood Count 8.5 k/uL (4.5-11.0) Red Blood Count 6.15 M/uL (4.17-5.56) Hemoglobin 14.2 g/dL (12.0-16.0) Hematocrit 43.5 % (34.0-47.0) Mean Corpuscular Volume 70.6 fL (80.0-96.0) Mean Corpuscular Hemoglobin 23.0 pg (26.0-33.0) Mean Corpuscular Hemoglobin Concent 32.6 g/dL (32.0-36.0) Red Cell Distribution Width 21.3 % (11.5-14.5) Platelet Count 435 K/uL (150-450) Mean Platelet Volume 7.9 fL (7.2-11.1) Neutrophils (%) (Auto) 77.0 % (39.4-72.5) Lymphocytes (%) (Auto) 14.3 % (17.6-49.6) Monocytes (%) (Auto) 7.0 % (4.1-12.4) Eosinophils (%) (Auto) 0.6 % (0.4-6.7) Basophils (%) (Auto) 1.1 % (0.3-1.4) Nucleated RBC Relative Count (auto) 0.0 /100WBC Neutrophils # (Auto) 6.6 K/uL (2.0-7.4) Lymphocytes # (Auto) 1.2 K/uL (1.3-3.6) Monocytes # (Auto) 0.6 K/uL (0.3-1.0) Eosinophils # (Auto) 0.0 K/uL (0.0-0.5) Basophils # (Auto) 0.1 K/uL (0.0-0.1) Nucleated RBC Absolute Count (auto) 0.00 K/uL Peripheral Blood Smear No Y/N Glomerular Filtration Rate Calc > 60.0 Calcium Level 8.9 mg/dl (8.4-10.2) Prothrombin Time 30.1 seconds (12.0-14.4) Prothromb Time International Ratio 2.80 Activated Partial Thromboplast Time 55 seconds (23-35) Coagulation Test 09/08/18 10:17 Prothrombin Time 30.1 seconds Prothromb Time International Ratio 2.80 Activated Partial Thromboplast Time 55 seconds EKG/Imaging Imaging FACILITY: [facility] PATIENT NAME: Geeta Salinas : 1960 MR: [id number] V: [id number] EXAM DATE: ORDERING PHYSICIAN: ROGER KEMP TECHNOLOGIST: Location: [facility] Patient: Geeta Salinas : 1960 Visit/Account:[id number] Date of Sevice: 09/08/2018 EXAMINATION: Right hip, 2 views 09/08/2018 10:12 AM HISTORY: right hip subluxation COMPARISON: CT abdomen and pelvis which images the hip 08/16/2018. Plain films 06/13/2018 FINDINGS: Images include AP pelvis and a and essentially AP right hip without substantial frog-leg abduction. Right BERE is unchanged in appearance and articulates appropriately in the projections obtained. Bones are osteopenic. The bony injury. Extensive lumbosacral fusion is partially imaged. IMPRESSION: Previous right BERE. No acute bony finding. Report Dictated By: Brayan Gonzales MD at 09/08/2018 11:17 AM Report E-Signed By: Brayan Gonzales MD at 09/08/2018 11:20 AM WSN:[email or web address] ED Course/Re-evaluation ED Course 09/08/2018 11:58:59 am patient feeling improved after muscle relaxants and pain medication. Patient was able to ambulate under her own power in the emergency department. She feels improved at this time. I will discharge home. Decision to Disposition Date: Sep 08, 2018 Decision to Disposition Time: 11:39 Depart Departure Latest Vital Signs Vital Signs Date Time Temp Pulse Resp B/P (MAP) Pulse Ox O2 Delivery O2 Flow Rate FiO2 09/08/18 11:23 83 12 96 Room Air 09/08/18 11:18 2 09/08/18 11:12 139/88 (105) 09/08/18 10:14 97.3 Impression: Primary Impression: Hip pain Condition: Improved Disposition: HOME OR SELF-CARE Referrals: JOSIAH DIAZ MD (PCP) New Scripts Hydrocodone Bit/Acetaminophen (HYDROCODON-ACETAMINOPHEN 5-325) 1 Each Tablet 1 EACH PO Q4-6H PRN for PAIN, #15 TAB 0 Refills TAKE ONE TABLET BY MOUTH EVERY 4-6 HOURS NEEDED FOR PAIN Prov: ROGER KEMP MD 09/08/18 Methocarbamol (ROBAXIN-750) 750 Mg Tablet 1500 MG PO TID for Muscle Relaxant, #30 TAB 0 Refills Prov: ROGER KEMP MD 09/08/18 Patient Instructions: Hip Pain (GEN) Problem Qualifiers Primary Impression: Hip pain Laterality: right Qualified Codes: M25.551 - Pain in right hip ROGER KEMP MD Sep 08, 2018 10:46
[2018-09-08 11:11] LABS: INR 2.8
[2018-09-08 11:12] VITALS: BP 139/88
[2018-09-08] MEDS ORDERED: ORPHENADRINE 60MG/2ML INJ IVP ONE (11:15)
--- NOTE | 2018-09-08 11:25 | RADIOLOGY IMAGING REPORT ---
FACILITY: [facility] PATIENT NAME: Geeta Salinas : 1960 MR: [id number] V: [id number] EXAM DATE: ORDERING PHYSICIAN: ROGER KEMP TECHNOLOGIST: Location: [facility] Patient: Geeta Salinas : 1960 Visit/Account:[id number] Date of Sevice: 09/08/2018 EXAMINATION: Right hip, 2 views 09/08/2018 10:12 AM HISTORY: right hip subluxation COMPARISON: CT abdomen and pelvis which images the hip 08/16/2018. Plain films 06/13/2018 FINDINGS: Images include AP pelvis and a and essentially AP right hip without substantial frog-leg a bduction. Right BERE is unchanged in appearance and articulates appropriately in the projections obta ined. Bones are osteopenic. The bony injury. Extensive lumbosacral fusion is partially imaged. IMPRESSION: Previous right BERE. No acute bony finding. Report Dictated By: Brayan Gonzales MD at 09/08/2018 11:17 AM Report E-Signed By: Brayan Gonzales MD at 09/08/2018 11:20 AM WSN:[email or web address]
[2018-09-08] MEDS ORDERED: METH-543 PO (11:38)
[2018-09-08] MEDS ORDERED: LOR5/325 PO (12:03)
[2018-09-11] MEDS ORDERED: PANT40TA65 PO (14:11)
[2018-09-11] MEDS ORDERED: GABA-549 PO (14:11)
== END 2018-09-08 12:10 | disposition home or self-care (01) ==
LOC: ER 11:02
DX: M25.551 Pain in right hip (principal); Z86.718 Personal history of other venous thrombosis and embolism; Z79.01 Long term (current) use of anticoagulants
CPT/HCPCS: 36415; 73502; 85025; 85610; 85730; 86850; 86900; 86901; 96374; 96375; 99283; J2360; J2405; J3010; 82310; 82374; 82435; 82565; 82947; 84132; 84295; 84520

== ENCOUNTER → 2018-09-08 | Outpatient (CLI) | payer OTHER ==
[2015-05-21 16:14] VITALS: BMI 30.9
[~2018-09-08] MED LIST changes: +METH-543 PO; -SENN8.6T34 PO; +SENN8.6T35 PO
== END ==
LOC: AMB 09:46
PROVIDERS: ATTEND Nurse Practitioner
DX: M25.551 Pain in right hip (principal); Z96.641 Presence of right artificial hip joint
CPT/HCPCS: A0425; A0429

== ENCOUNTER → 2018-09-08 | Outpatient (CLI) | payer OTHER ==
[2015-05-21 16:14] VITALS: BMI 30.9
== END ==
LOC: AMB 11:55
PROVIDERS: ATTEND Nurse Practitioner
DX: M25.551 Pain in right hip (principal)
CPT/HCPCS: A0425; A0428

== ENCOUNTER → 2018-10-06 | Outpatient (CLI) | payer OTHER ==
[2015-05-21 16:14] VITALS: BMI 30.9
[~2018-10-06] MED LIST changes: +METH-543 PO; -SENN8.6T34 PO; +SENN8.6T35 PO
--- NOTE | 2018-10-06 12:35 | RADIOLOGY IMAGING REPORT ---
FACILITY: [facility] [place] PATIENT NAME: Geeta Salinas : 1960 MR: [id number] V: [id number] EXAM DATE: ORDERING PHYSICIAN: ANABEL MOTA TECHNOLOGIST: Location: [facility] Patient: Geeta Salinas : 1960 Visit/Account:[id number] Date of Sevice: 10/06/2018 HIP RIGHT W/O CONTRAST COMPARISON: Right hip radiographs September 08, 2018. HISTORY: Right hip pain status post total hip arthroplasty. TECHNIQUE: Noncontrast axial CT of the right hip with coronal and sagittal reformats. One of the following dose optimization techniques was utilized in the performance of this exam: auto mated exposure control; adjustment of the mA and/or kV according to patient size; or use of iterative reconstruction technique. Specific details can be referenced in the facility's radiology CT exam op erational policy. CONTRAST: None. FINDINGS: BONES : Hardware components of a right total hip arthroplasty are present in anatomic alignment. The re is no evidence of hardware loosening or periprosthesis fracture. Visualized right pelvis is intact and unremarkable. Visualized right SI joint is normal. FLUID: No appreciable effusion or drainable fluid collection. SOFT TISSUES: No focal muscle atrophy. Slightly convex, rounded contours of the medial aspect of the gluteus medius muscle, for example series 4 image 14, which is otherwise very similar in density to the rest of the musculature. This could represent scarring or chronic intramuscular hematoma which is difficult to accurately measure because it is essentially isodense to the adjacent musculature but i t measures up to about 1.8 x 2 cm in transverse measurements. OTHER: Mild vascular calcifications in the pelvis. IMPRESSION: 1. Right total hip arthroplasty in good alignment without evidence of loosening or fracture. No spec [facility] cause for pain. 2. Slightly rounded contours of the right gluteus medius muscle which may represent scarring or a sm all chronic intramuscular hematoma. Report Dictated By: Charles Cohen at 10/06/2018 12:19 PM Report E-Signed By: Charles Cohen at 10/06/2018 12:30 PM WSN:[email or web address]
== END ==
LOC: CT 10-03 00:31
PROVIDERS: ATTEND Orthopaedic Surgery
DX: M25.551 Pain in right hip (principal); Z96.641 Presence of right artificial hip joint

== ENCOUNTER → 2019-03-28 | Outpatient (CLI) | payer OTHER ==
[2015-05-21 16:14] VITALS: BMI 30.9
[~2019-03-28] MED LIST changes: +TRIA15CR40 TP
--- NOTE | 2019-03-29 09:05 | RADIOLOGY IMAGING REPORT ---
FACILITY: [facility] PATIENT NAME: DIMAS ADKINS : [id number] MR: [id number] V: [id number] EXAM DATE: ORDERING PHYSICIAN: OXANA ASIF TECHNOLOGIST: Angela Arizmendi PROCEDURE: BILATERAL DIGITAL SCREENING MAMMOGRAM WITH CAD ASSISTED INTERPRETATION & 3D TOMOSYNTHESIS REASON FOR STUDY: Screening. FAMILY HISTORY OF BREAST CANCER: None. BREAST PROCEDURES/TREATMENTS: The patient has had bilateral breast camejo in the past with reconstructive surgery. COMPARISON: Prior mammograms 03/24/18, 03/23/17, 01/20/16, 09/16/14. VIEWS OBTAINED: 2D & 3D full field CC & MLO. BREAST DENSITY: The breasts are heterogeneously dense which can obscure small masses. MAMMOGRAM FINDINGS: There are numerous calcified oil cysts seen throughout the breasts and numerous scattered round calcifications noted bilaterally. The oil cysts are more heavily calcified when compared to the earliest mammograms. There is a biopsy clip in the medial inferior portion of the Left breast in the anterior 1/3. IMPRESSION: BIRADS 2: Benign finding. DIAGNOSTIC CATEGORY 2--BENIGN FINDING. RECOMMENDATIONS: ROUTINE MAMMOGRAM AND CLINICAL EVALUATION. Dictated by: Erin Tompkins M.D. on 03/28/2019 at 16:18 Transcribed by: FELECIA on 03/29/2019 at 8:35 Approved by: Erin Tompkins M.D. on 03/29/2019 at 9:04 [facility]
== END ==
LOC: MAMO 00:33
PROVIDERS: ATTEND Emergency Medicine
DX: Z12.31 Encounter for screening mammogram for malignant neoplasm of breast (principal)
CPT/HCPCS: 77063; 77067

== ENCOUNTER → 2019-03-30 | Outpatient (CLI) | payer OTHER ==
[2015-05-21 16:14] VITALS: BMI 30.9
[2019-03-30 15:47] LABS: PLATELET COUNT, AUTOMATED 377 K/uL (150-450)
== END ==
LOC: LAB 15:04
PROVIDERS: ATTEND Internal Medicine
DX: K21.9 Gastro-esophageal reflux disease without esophagitis (principal); Z86.718 Personal history of other venous thrombosis and embolism; I26.99 Other pulmonary embolism without acute cor pulmonale
CPT/HCPCS: 82040; 82247; 82306; 82310; 82374; 82435; 82465; 82565; 82728; 82947; 83540; 83550; 83718; 84075; 84132; 84155; 84295; 84443; 84450; 84460; 84478; 84520; 84550; 85025

== ENCOUNTER → 2019-04-09 | Outpatient (CLI) | payer OTHER ==
[2015-05-21 16:14] VITALS: BMI 30.9
[~2019-04-09] MED LIST changes: +FERR-53 PO; -RANI-366 PO; +RANI-54 PO
== END ==
LOC: LAB 16:16
PROVIDERS: ATTEND Internal Medicine
DX: I26.99 Other pulmonary embolism without acute cor pulmonale (principal); E61.1 Iron deficiency; M41.9 Scoliosis, unspecified; R63.4 Abnormal weight loss
CPT/HCPCS: 81001

== ENCOUNTER → 2019-04-11 | Outpatient (CLI) | payer OTHER ==
[2015-05-21 16:14] VITALS: BMI 30.9
--- NOTE | 2019-04-11 15:13 | RADIOLOGY IMAGING REPORT ---
FACILITY: [facility] - [place] PATIENT NAME: Geeta Salinas : 1960 MR: [id number] V: [id number] EXAM DATE: ORDERING PHYSICIAN: [facility] TECHNOLOGIST: Location: [facility] [place] Patient: Geeta Salinas : 1960 Visit/Account:[id number] Date of Sevice: 04/11/2019 Thoracic and lumbar spine CT without contrast COMPARISON: None TECHNIQUE: Thoracic and lumbar spine noncontrast CT performed with sagittal and coronal reformations. One of the following dose optimization techniques was utilized in the performance of this exam: auto mated exposure control; adjustment of the mA and/or kV according to patient size; or use of iterative reconstruction technique. Specific details can be referenced in the facility's radiology CT exam op erational policy. FINDINGS: Thoracic spine: Slight to mild convexity right scoliosis. Normal vertebral body heights. Mild multilevel mid to lower facet arthropathy. No fracture or osseous destruction. Slight anterolisthesis of T10 on T11. Posterior fusion hardware with paraspinal rods and pedicle/vertebral body screws extend from T11 thro ugh the visible lumbar spine. The visible hardware is intact. No hardware loosening surrounding the v isible hardware. Exaggerated kyphosis centered at the T10-11 disc space level. Severe degeneration of the anterior aspect of the T10-11 disc space. Bone graft surrounds the posterior elements at the levels of hardware. Cholecystectomy clips noted. Coronary artery calcifications. Lumbar spine: Posterior fusion hardware extends from the lower visible thoracic spine through the S1 level with par aspinal rods and pedicle/vertebral body screws. The hardware is intact. No evidence of hardware loose yesi. Iliac screws also noted. Chronic mild wedging of the posterior aspect of the L3 vertebral body. Vertebral body heights are oth erwise normal. L3 laminectomy defect. No acute fracture or osseous destruction. Partial fusion of mu ltiple facet joints. Fused bone graft surrounds the posterior elements and hardware throughout the tanya mbar spine. Slight anterolisthesis of L3 on L4. Slight retrolisthesis of L2 on L3. Moderate convexity left lumbar scoliosis. Severe left-sided L1-2, right-sided L2-3, right-sided L3-4 disc space degeneration. Partially fused L 4-5 disc space. L5-S1 disc space prosthesis with partially fused L5-S1 disc space. Colonic diverticulosis noted. Cholecystectomy clips. IMPRESSION: 1. Intact posterior fusion hardware extends from T11 through the sacrum and iliac bones. No evidence of hardware loosening. 2. Moderate convexity left lumbar scoliosis. Partially fused L4-5 and L5-S1 disc spaces. 3. Severe multilevel lumbar disc space degeneration. Severe anterior T10-11 disc space degeneration. 4. Focal kyphosis centered at the T10-11 level with slight anterolisthesis of T10 on T11. Report Dictated By: Oscar Rashid MD at 04/11/2019 2:39 PM Report E-Signed By: Oscar Rashid MD at 04/11/2019 3:07 PM WSN:[email or web address]
--- NOTE | 2019-04-11 15:14 | RADIOLOGY IMAGING REPORT ---
FACILITY: [facility] - [place] PATIENT NAME: Geeta Salinas : 1960 MR: [id number] V: [id number] EXAM DATE: ORDERING PHYSICIAN: [facility] TECHNOLOGIST: Location: [facility] Patient: Geeta Salinas : 1960 Visit/Account:[id number] Date of Sevice: 04/11/[address]acic [address] lumbar spine CT without contrast COMPARISON: None TECHNIQUE: Thoracic and lumbar spine noncontrast CT performed with sagittal and coronal reformations. One of the following dose optimization techniques was utilized in the performance of this exam: auto mated exposure control; adjustment of the mA and/or kV according to patient size; or use of iterative reconstruction technique. Specific details can be referenced in the facility's radiology CT exam op erational policy. FINDINGS: Thoracic spine: Slight to mild convexity right scoliosis. Normal vertebral body heights. Mild multilevel mid to lower facet arthropathy. No fracture or osseous destruction. Slight anterolisthesis of T10 on T11. Posterior fusion hardware with paraspinal rods and pedicle/vertebral body screws extend from T11 thro ugh the visible lumbar spine. The visible hardware is intact. No hardware loosening surrounding the v isible hardware. Exaggerated kyphosis centered at the T10-11 disc space level. Severe degeneration of the anterior aspect of the T10-11 disc space. Bone graft surrounds the posterior elements at the levels of hardware. Cholecystectomy clips noted. Coronary artery calcifications. Lumbar spine: Posterior fusion hardware extends from the lower visible thoracic spine through the S1 level with par aspinal rods and pedicle/vertebral body screws. The hardware is intact. No evidence of hardware loose yesi. Iliac screws also noted. Chronic mild wedging of the posterior aspect of the L3 vertebral body. Vertebral body heights are oth erwise normal. L3 laminectomy defect. No acute fracture or osseous destruction. Partial fusion of mu ltiple facet joints. Fused bone graft surrounds the posterior elements and hardware throughout the tanya mbar spine. Slight anterolisthesis of L3 on L4. Slight retrolisthesis of L2 on L3. Moderate convexity left lumbar scoliosis. Severe left-sided L1-2, right-sided L2-3, right-sided L3-4 disc space degeneration. Partially fused L 4-5 disc space. L5-S1 disc space prosthesis with partially fused L5-S1 disc space. Colonic diverticulosis noted. Cholecystectomy clips. IMPRESSION: 1. Intact posterior fusion hardware extends from T11 through the sacrum and iliac bones. No evidence of hardware loosening. 2. Moderate convexity left lumbar scoliosis. Partially fused L4-5 and L5-S1 disc spaces. 3. Severe multilevel lumbar disc space degeneration. Severe anterior T10-11 disc space degeneration. 4. Focal kyphosis centered at the T10-11 level with slight anterolisthesis of T10 on T11. Report Dictated By: Oscar Rashid MD at 04/11/2019 2:39 PM Report E-Signed By: Oscar Rashid MD at 04/11/2019 3:07 PM WSN:[email or web address]
== END ==
LOC: CT 00:40
DX: M41.86 Other forms of scoliosis, lumbar region (principal); M47.896 Other spondylosis, lumbar region; M43.25 Fusion of spine, thoracolumbar region
CPT/HCPCS: 72128; 72131

== ENCOUNTER → 2019-04-17 | Outpatient (CLI) | payer OTHER ==
[2015-05-21 16:14] VITALS: BMI 30.9
== END ==
LOC: LAB 16:25
PROVIDERS: ATTEND Physician Assistant
DX: Z88.9 Allergy status to unspecified drugs, medicaments and biological substances (principal)
CPT/HCPCS: 36415; 86003

== ENCOUNTER → 2019-06-07 | Outpatient (CLI) | payer OTHER ==
[2015-05-21 16:14] VITALS: BMI 30.9
[~2019-06-07] MED LIST changes: +ASCO-182 PO; +ASPI-757 PO; +CHOL10005 PO; +ERGO2500 PO; +FURO-45 PO; +LORA-630 PO; +MORP-1 PO; +MORPHINE; +MULT1CAP59 PO; +NITR-105 PO; +POLY17PO25 PO; +RIZA10TA15 PO; +[UNRECOGNIZED DRUG - OTHER]; +pain meds
== END ==
LOC: AMB 12:23
PROVIDERS: ATTEND Nurse Practitioner
DX: K59.00 Constipation, unspecified (principal); R06.00 Dyspnea, unspecified; R11.0 Nausea
CPT/HCPCS: A0425; A0429

== ENCOUNTER → 2019-06-14 | Outpatient (CLI) | payer OTHER ==
[2015-05-21 16:14] VITALS: BMI 30.9
[2019-06-14 09:54] LABS: PLATELET COUNT, AUTOMATED 489 K/uL (150-450)
== END ==
LOC: LAB 09:28
PROVIDERS: ATTEND Internal Medicine
DX: K59.00 Constipation, unspecified (principal); K21.9 Gastro-esophageal reflux disease without esophagitis; E61.1 Iron deficiency; E87.1 Hypo-osmolality and hyponatremia
CPT/HCPCS: 36415; 82040; 82247; 82310; 82374; 82435; 82565; 82728; 82947; 83540; 83550; 84075; 84132; 84155; 84295; 84450; 84460; 84520; 85025